=== PATIENT | male | born 1990 | race Two or more races ===

== ENCOUNTER 2017-08-11 22:27 | Emergency (ER) | payer SELFPAY ==
[~2017-08-11] VITALS: Ht 165.1 cm; Wt 88.5 kg
[2017-08-11 22:32] VITALS: BP 184/98
[2017-08-11] MEDS ORDERED: AMOX875T PO (22:46)
[2017-08-11] MEDS ORDERED: IBUP-1060 PO (22:46)
--- NOTE | 2017-08-11 22:46 | PHYS DOC ---
Adult General Chief Complaint Chief Complaint: DENTAL PROBLEM HPI HPI Patient is a 27 year old L presents to the emergency department with complaints of dental pain for several weeks. He states it's gotten progressively worse for 3 days. He's had no fever, no difficulty with swallowing or phonation Review of Systems Review of Systems Constitutional: Denies fever or chills [] Eyes: Denies change in visual acuity, redness, or eye pain [] HENT: Denies nasal congestion or sore throat, dental pain [] Respiratory: Denies cough or shortness of breath [] Cardiovascular: No additional information not addressed in HPI [] GI: Denies abdominal pain, nausea, vomiting, bloody stools or diarrhea [] : Denies dysuria or hematuria [] Musculoskeletal: Denies back pain or joint pain [] Integument: Denies rash or skin lesions [] Neurologic: Denies headache, focal weakness or sensory changes [] Endocrine: Denies polyuria or polydipsia [] All other systems were reviewed and found to be within normal limits, except as documented in this note. Physical Exam Physical Exam Constitutional: Well developed, well nourished, no acute distress, non-toxic appearance. [] HENT: Normocephalic, atraumatic, bilateral external ears normal, oropharynx moist, no oral exudates, nose normal. Tooth #30, decay, surrounding gingiva with erythema. Is tender to palpate. ] Neck: Normal range of motion, no tenderness, supple no lymphadenopathy Cardiovascular:Heart rate regular rhythm, no murmur [] Lungs & Thorax: Bilateral breath sounds clear to auscultation [] EKG EKG [] Radiology/Procedures Radiology/Procedures [] Course & Med Decision Making Course & Med Decision Making Pertinent Labs and Imaging studies reviewed. (See chart for details) [] Dragon Disclaimer Dragon Disclaimer This electronic medical record was generated, in whole or in part, using a voice recognition dictation system. Departure Departure Impression: Primary Impression: Dental abscess Additional Impression: Hypertension Disposition: 01 HOME, SELF-CARE Condition: STABLE [facility]errals: [facility] Patient Instructions: Dental Abscess, Hypertension Scripts Ibuprofen (IBUPROFEN) 800 Mg Tablet 800 MG PO PRN Q6HRS Y for INFLAMMATION, #20 TAB Prov: FERNANDEZ DAMON [employer] 08/11/17 Amoxicillin (AMOXICILLIN) 875 Mg Tablet 1 TAB PO BID, #20 TAB Prov: FERNANDEZ DAMON APRN 08/11/17 Problem Qualifiers Additional Impression: Hypertension Hypertension type: unspecified Qualified Codes: I10 - Essential (primary) hypertension FERNANDEZ DAMON APRN Aug 11, 2017 22:46
== END 2017-08-11 22:52 | disposition home or self-care (01) ==
LOC: ER 22:27
DX: K04.7 Periapical abscess without sinus (principal); I10 Essential (primary) hypertension
CPT/HCPCS: 99283